=== PATIENT | female | born 1955 | race Two or more races ===

== ENCOUNTER 2017-11-22 14:29 | Emergency (ER) | END 2017-11-22 18:16 | disposition home or self-care (01) ==

== ENCOUNTER 2018-09-17 22:32 | Emergency (ER) | payer OTHER ==
[~2018-09-17] VITALS: Ht 149.9 cm; Wt 68.0 kg
[~2018-09-17 22:32] MED LIST: ALBU18HF IH; ALEN70TA5 PO; AZIT250T PO; BECL8.7A5 INH; BENZ-6 PO; FER325 PO; FLUT16SP24 NASAL; IBUP-1542 PO; LANT3I SC; METF-849 PO; METO-448 PO; MONT10TA21 PO; NAPR-688 PO; NATE60TA8 PO; PANT40TA4 PO; PROM6.25 PO; SERT100T PO; SIMV20TA PO; ZOLP5TAB PO
[2018-09-17 22:35] VITALS: Ht 149.9 cm; Wt 68.0 kg
[2018-09-18] MEDS ORDERED: KETOROLAC 15 MG INJ IM STA (00:53)
[2018-09-18] MEDS ORDERED: ACET-141 PO (04:33)
--- NOTE | 2018-09-18 04:37 | ERD ---
ER Documentation Chief Complaint Chief Complaint LOW BACK PAIN WITH RADIATING PAIN TO BILATERAL LEGS/BUTTOCKS ROS All systems reviewed and are negative except as per history of present illness. Medications Home Meds Active Scripts Acetaminophen* (Acetaminophen*) 500 MG Extra Strength Tablet, 500 MG PO Q4H PRN for PAIN AND OR ELEVATED TEMP, #30 TAB Prov:CHUY WORRELL DO 09/18/18 Naproxen* (Naproxen*) 500 Mg Tablet, 500 MG PO BID PRN for PAIN, #14 TAB Prov:PAMELA ROSAS DO 11/22/17 Fluticasone Propionate* (Flonase* Nasal) 50 Mcg/[place] - 16 Gm [place].susp, 1 SPRAY NASAL DAILY, #1 BOTTLE Prov:CHO,NIKHIL 10/31/14 Promethazine w/Codeine* (Phenergan w/Codeine* Syrup) 5 Ml Syrup, 5 ML PO Q4H PRN for COUGH, #4 OZ Prov:CHO,NIKHIL 10/31/14 Benzonatate* (Tessalon Perle*) 100 Mg Capsule, 200 MG PO Q8H PRN for COUGH, #21 CAP Prov:CHO,NIKHIL 10/31/14 Azithromycin* (Zithromax*) 250 Mg Tablet, 250 MG PO .ZPACK DIRECTED, #6 TAB TAKE 500 MG (2 TABS) THE FIRST DAY THEN 250 MG (1 TAB) DAYS 2-5 Prov:CHO,NIKHIL 10/31/14 Metoprolol Tartrate* (Lopressor*) 25 Mg Tab, 12.5 MG PO BID for 30 Days, TAB Prov:LAY COFFEY NP 02/15/14 Insulin Glargine* (Lantus*) 100 Unit/Ml Soln, 20 UNIT SC HS for 30 Days Prov:LAY COFFEY NP 02/15/14 Pantoprazole (Protonix) 40 Mg Tabec, 40 MG PO BID for 30 Days Prov:LAY COFFEY NP 02/15/14 Nateglinide* (Starlix*) 60 Mg Tab, 60 MG PO AC MEALS for 30 Days Prov:LAY COFFEY NP 02/15/14 Ferrous Sulfate* (Ferrous Sulfate*) 325 Mg Tabec, 325 MG PO BID for 30 Days Prov:LAY COFFEY NP 02/15/14 Albuterol Sulfate* (Ventolin HFA*) 18 Gm Hfa.aer.ad, 2 PUFF IH Q4H PRN for WHEEZING for 30 Days, EA Prov:LAY COFFEY [employer] 02/15/14 Beclomethasone Dip* (Qvar 80*) 7.3 Gm Inha, 2 PUFF INH BID for 30 Days, INH Prov:LAY COFFEY [employer] 02/15/14 Metformin* (Glucophage*) 500 Mg Tab, 1000 MG PO BID for 30 Days, TAB Prov:LAY COFFEY [employer] 02/15/14 Reported Medications Montelukast Sodium* (Singulair*) 10 Mg Tablet, 10 MG PO HS, TAB 01/30/14 Ibuprofen* (Motrin*) 600 Mg Tab, 600 MG PO TID PRN for with food, TAB 01/30/14 Zolpidem Tartrate* (Ambien*) 5 Mg Tablet, 5 MG PO HS PRN for INSOMNIA, TAB 01/30/14 Sertraline Hcl* (Zoloft*) 100 Mg Tablet, 100 MG PO DAILY, TAB 01/01/14 Alendronate Sodium* (Fosamax*) 70 Mg Tablet, 70 MG PO Q7D, TAB 01/01/14 Simvastatin* (Zocor*) 20 Mg Tablet, 20 MG PO HS, TAB 01/01/14 Allergies Allergies: Coded Allergies: Penicillins (Verified Allergy, Unknown, "FAINT", 11/22/17) cephalexin (Verified Allergy, Unknown, HIVES, 11/22/17) PMhx/Soc History of Surgery: Yes (C section) Anesthesia Reaction: No Hx Neurological Disorder: No Hx Respiratory Disorders: Yes (ASTHMA, CHRONIC BRONCHITIS) Hx Cardiac Disorders: Yes (HTN, high cholesterol) Hx Psychiatric Problems: No Hx Miscellaneous Medical Probl: Yes (asthma,DM, htn,hyerplipidemia,depression,insomia) Hx Alcohol Use: No Hx Substance Use: No Hx Tobacco Use: No Smoking Status: Never smoker Physical Exam Vitals Vital Signs Date Temp Pulse Resp B/P (MAP) Pulse Ox O2 O2 Flow FiO2 Time Delivery Rate 09/17/18 99.0 89 20 170/89 97 22:35 (116) Physical Exam Const: No acute distress Head: Atraumatic Eyes: Normal Conjunctiva ENT: Normal External Ears, Nose and Mouth. Neck: Full range of motion. No meningismus. Resp: Clear to auscultation bilaterally Cardio: Regular rate and rhythm, no murmurs Abd: Soft, non tender, non distended. Normal bowel sounds Skin: No petechiae or rashes Back: No midline or flank tenderness Ext: No cyanosis, or edema Neur: Awake and alert Psych: Normal Mood and Affect Results 24 hrs Laboratory Tests Test 09/18/18 00:12 Urine Color COLORLESS Urine Clarity CLEAR Urine pH 6.0 Urine Specific Bailey 1.003 Urine Ketones NEGATIVE mg/dL Urine Nitrite NEGATIVE mg/dL Urine Bilirubin NEGATIVE mg/dL Urine Urobilinogen NEGATIVE mg/dL Urine Leukocyte Esterase NEGATIVE Surinder/ul Urine Hemoglobin NEGATIVE mg/dL Urine Glucose NEGATIVE mg/dL Urine Total Protein NEGATIVE mg/dl Current Medications Medications Dose Sig/Phoebe Start Time Status Last (Trade) Ordered Route PRN Stop Time Admin Dose Reason Admin Ketorolac 15 mg ONCE STAT 09/18/18 DC 09/18/18 Tromethamine IM 00:53 01:07 (Toradol) 09/18/18 00:54 Departure Diagnosis: Primary Impression: Back pain Back pain location: low back pain Chronicity: unspecified Back pain laterality: unspecified Sciatica presence: with sciatica Sciatica laterality: sciatica of right side Qualified Codes: M54.41 - Lumbago with sciatica, right side Condition: Fair Patient Instructions: Back Pain W/ Sciatica Referrals: [facility] YOU HAVE RECEIVED A MEDICAL SCREENING EXAM AND THE RESULTS INDICATE THAT YOU DO NOT HAVE A CONDITION THAT REQUIRES URGENT TREATMENT IN THE EMERGENCY DEPARTMENT. FURTHER EVALUATION AND TREATMENT OF YOUR CONDITION CAN WAIT UNTIL YOU ARE SEEN IN YOUR DOCTORS OFFICE WITHIN THE NEXT 1-2 DAYS. IT IS YOUR RESPONSIBILITY TO MAKE AN APPOINTMENT FOR FOLOW-UP CARE. IF YOU HAVE A PRIMARY DOCTOR --you should call your primary doctor and schedule an appointment IF YOU DO NOT HAVE A PRIMARY DOCTOR YOU CAN CALL OUR PHYSICIAN REFERRAL HOTLINE AT IF YOU CAN NOT AFFORD TO SEE A PHYSICIAN YOU CAN CHOSE FROM THE FOLLOWING [facility] [address] [facility] [address] [facility] [address] [facility] [address] [facility] [address] [facility]. [facility]. [address] Additional Instructions: Call your primary care doctor TOMORROW for an appointment during the next 1-2 days.See the doctor sooner or return here if your condition worsens before your appointment time. Recommend warm compresses 3 times daily pain medication prn Need referral to physical therapy if pain does not improved CHUY WORRELL DO Sep 18, 2018 04:37
[2018-09-18 05:13] VITALS: BP 185/87; PULSE 70; RESP 18
== END 2018-09-18 05:14 | disposition home or self-care (01) ==
LOC: FTE 22:32
DX: M54.41 Lumbago with sciatica, right side (principal); J45.909 Unspecified asthma, uncomplicated; I10 Essential (primary) hypertension; E11.9 Type 2 diabetes mellitus without complications; Z79.4 Long term (current) use of insulin
CPT/HCPCS: 72220; 81003; 96372; 99284; J1885